=== PATIENT | male | born 1945 | race Caucasian/White ===

== ENCOUNTER 2017-11-26 10:25 | Emergency (ER) | payer MEDICARE, OTHER, SELFPAY ==
[2017-11-26 10:28] VITALS: BP 149/78; PULSE 68; RESP 18; TEMP 36.4; O2SAT 92; BMI 29.5
--- NOTE | 2017-11-26 10:34 | ED.FALL ---
HPI - Fall General Chief Complaint: Fall Stated Complaint: 'BROKEN RIB' Time Seen by Provider: 11/26/17 10:28 Source: patient and family Mode of arrival: ambulatory Limitations: no limitations History of Present Illness HPI Narrative: Patient presents to the emergency department with a chief complaint of right anterior chest pain since a mechanical fall on Sunday. He was walking down 2 steps and caught the toe of his shoe and fell onto his right side. He bumped his right elbow and shoulder but has full range of motion. He has sharp and stabbing pain with motion and deep breath or cough. He denies hemoptysis or shortness of breath. MD complaint: fall Onset (ago): day(s) Fall from: standing Fall witnessed: yes, by family Place fall occurred: home Loss of consciousness: none Prolonged down time: no Context: tripped/slipped Location of injury: chest Severity: moderate Severity scale (1-10): 5 Quality: sharp Associated symptoms (after fall): chest pain Related Data Home Medications Medication Instructions Recorded Confirmed [TUMERIC] 500 mg PO QDAY #0 08/13/17 lisinopril 40 mg PO QDAY #0 08/13/17 multivitamin [Multiple Vitamins] 1 tab PO QDAY #0 08/13/17 Previous Rx's Medication Instructions Recorded hydrocodone-acetaminophen [[place]] 1 tab PO Q4H PRN #60 tab 08/28/17 hydrocodone-acetaminophen 1 tab PO Q4-6H PRN #14 tab 11/26/17 Allergies Allergy/AdvReac Type Severity Reaction Status Date / Time citric acid [CITRIC ACID] Allergy Mild CANKER Verified 11/26/17 10:32 SORES Penicillins [PENICILLINS] Allergy Unknown CHILDHOOD Verified 11/26/17 10:32 Review of Systems Review of Systems All systems reviewed & are unremarkable except as noted in HPI and below Constitutional Denies chills, Denies fever(s), Denies lethargy and Denies weakness ENT Ears, Nose, Mouth, and Throat: Denies change in voice, Denies neck pain and Denies sore throat Cardiovascular Denies chest pain, Denies irregular heart rhythm, Denies lightheadedness, Denies palpitations and Denies orthopnea Respiratory Reports as per HPI, Reports pain on inspiration and Reports pain with cough Gastrointestinal Gastrointestinal: Denies abdominal pain, Denies change in bowel habits, Denies diarrhea, Denies nausea and Denies vomiting Musculoskeletal Denies neck pain Neurologic Denies weakness Endocrine Denies palpitations Exam Narrative Exam Narrative: Pleasant 72-year-old male is alert and oriented x3, GCS 15, in obvious pain clutching his right chest. Const General: cooperative and well developed Nutritional Appearance: well nourished Orientation: alert, awake, oriented x3 and not confused [facility] Head: normocephalic and atraumatic Ears: external ears normal and TM's normal bilaterally Nose: external nose normal and No nasal discharge Face and sinus: sinuses nontender, face symmetric, no sinus tenderness and No dry mucous membranes Mouth: oral mucosae normal and moist mucous membranes Teeth and gingiva: dentition normal Throat: tonsils normal and uvula midline Neck Neck: normal visual inspection, trachea midline, No lymphadenopathy, No midline deformity and No JVD Lymphatic: No lymphedema Chest Chest: abnormal inspection of the chest, crepitus and localized rib tenderness with anteroposterior compression Resp Effort & Inspection: normal respiratory effort, able to speak in complete sentences, no respiratory distress and no use of accessory muscles Auscultation: clear to auscultation bilaterally, no rales, no rhonchi and no wheezes GI Inspection: non-distended Palpation: soft, no hepatosplenomegaly, No guarding, No pulsatile mass and No tender Auscultation: normal bowel sounds Back/Spine/Pelvis Back: No CVA tenderness Cervical Spine: cervical ROM normal and No pain with cervical ROM Thoracic/Lumbar Spine: thoracic and lumbar spine normal to inspection Skin Other: very minor abrasion R elbow Neuro General: alert, oriented x3, gait normal and no focal motor deficits Speech: speech normal Sensory Exam: no sensory deficits noted [facility] Social History Smoking Status: Never smoker MDM - Fall Imaging Data Chest x-ray: My impression: multiple R sided rib fractures Radiologist's impression: PROCEDURE: XR RIBS RT MIN 3V W CXR 1V INDICATIONS: fall with rib pain TECHNIQUE: 2 views of the right ribs were acquired, along with a single view chest. COMPARISON: None. FINDINGS: Surgical changes and devices: None. Bones and chest wall: Right 9th, 10th and 11th rib fractures. Lungs and pleura: No pneumothorax. Trace right pleural effusion and atelectasis. Lungs appear clear. Mediastinum: Mediastinal contours appear normal. Heart size is normal. IMPRESSION: Right 9th , 10th, 11th rib fractures Trace right pleural effusion and adjacent atelectasis. Dictated by: Jose Barnhart M.D. on 11/26/2017 at 11:44 Approved by: Jose Barnhart M.D. on 11/26/2017 at 11:49 Course Orders Ordered: ED Orders 11/26/17 10:35 XR ribs RT min 3V w CXR1V Stat Discontinued Medications Hydrocodone Bitart/Acetaminophen ([place] 5/325) 2 tab PO NOW ONE Stop: 11/26/17 10:58 Last Admin: 11/26/17 11:07 Dose: 2 tab Last Vital Signs Temp 97.6 F 11/26/17 10:28 Pulse 68 11/26/17 10:28 Resp 18 11/26/17 10:28 BP 149/78 H 11/26/17 10:28 Pulse Ox 92 11/26/17 10:28 Discharge Plan Departure Patient Disposition: Home, Self-Care Clinical Impression: Fracture, ribs Discharge Date/Time: 11/26/17 11:25 Interventions: ED Discharge Assessment Last Done: 11/26/17 11:26 Instructions: DI for Rib Fracture Activity Restrictions/Additional Instructions: You have been prescribed narcotic medications. While on these medications you cannot drive or operate heavy machinery. Additionally you cannot sign legal documents or perform any duties such as this. Many people get constipated on narcotic medications so it would be advisable to discuss stool softeners with the pharmacist when you sweet pickle maker your prescription. Please understand that we cannot provide further refills of narcotics or controlled substances through the ED and your pain management will need to be through your Primary Care Provider Prescriptions: New hydrocodone-acetaminophen 5-325 mg tablet 1 tab PO Q4-6H PRN (Reason: pain) Qty: 14 RF: 0 No Action multivitamin [Multiple Vitamins] 1 EACH tablet 1 tab PO QDAY Qty: 0 RF: 0 lisinopril 40 MG tablet 40 mg PO QDAY Qty: 0 RF: 0 [TUMERIC] 500 mg PO QDAY Qty: 0 RF: 0 hydrocodone-acetaminophen [[place]] 5 MG/325 MG tablet 1 tab PO Q4H PRNQty: 60 RF: 0
[2017-11-26] MEDS: HYDROCODONE/ACET 5/325 TABLET 2 TAB PO (11:07)
--- NOTE | 2017-11-26 16:13 | ED_ITS ---
HPI - Fall General Chief Complaint: Fall Stated Complaint: 'BROKEN RIB' Time Seen by Provider: 11/26/17 10:28 Source: patient and family Mode of arrival: ambulatory Limitations: no limitations History of Present Illness HPI Narrative: Patient presents to the emergency department with a chief complaint of right anterior chest pain since a mechanical fall on Sunday. He was walking down 2 steps and caught the toe of his shoe and fell onto his right side. He bumped his right elbow and shoulder but has full range of motion. He has sharp and stabbing pain with motion and deep breath or cough. He denies hemoptysis or shortness of breath. MD complaint: fall Onset (ago): day(s) Fall from: standing Fall witnessed: yes, by family Place fall occurred: home Loss of consciousness: none Prolonged down time: no Context: tripped/slipped Location of injury: chest Severity: moderate Severity scale (1-10): 5 Quality: sharp Associated symptoms (after fall): chest pain Related Data Home Medications Medication Instructions Recorded Confirmed [TUMERIC] 500 mg PO QDAY #0 08/13/17 lisinopril 40 mg PO QDAY #0 08/13/17 multivitamin [Multiple Vitamins] 1 tab PO QDAY #0 08/13/17 Previous Rx's Medication Instructions Recorded hydrocodone-acetaminophen [[place]] 1 tab PO Q4H PRN #60 tab 08/28/17 hydrocodone-acetaminophen 1 tab PO Q4-6H PRN #14 tab 11/26/17 Allergies Allergy/AdvReac Type Severity Reaction Status Date / Time citric acid [CITRIC ACID] Allergy Mild CANKER Verified 11/26/17 10:32 SORES Penicillins [PENICILLINS] Allergy Unknown CHILDHOOD Verified 11/26/17 10:32 Review of Systems Review of Systems All systems reviewed & are unremarkable except as noted in HPI and below Constitutional Denies chills, Denies fever(s), Denies lethargy and Denies weakness ENT Ears, Nose, Mouth, and Throat: Denies change in voice, Denies neck pain and Denies sore throat Cardiovascular Denies chest pain, Denies irregular heart rhythm, Denies lightheadedness, Denies palpitations and Denies orthopnea Respiratory Reports as per HPI, Reports pain on inspiration and Reports pain with cough Gastrointestinal Gastrointestinal: Denies abdominal pain, Denies change in bowel habits, Denies diarrhea, Denies nausea and Denies vomiting Musculoskeletal Denies neck pain Neurologic Denies weakness Endocrine Denies palpitations Exam Narrative Exam Narrative: Pleasant 72-year-old male is alert and oriented x3, GCS 15, in obvious pain clutching his right chest. Const General: cooperative and well developed Nutritional Appearance: well nourished Orientation: alert, awake, oriented x3 and not confused [facility] Head: normocephalic and atraumatic Ears: external ears normal and TM's normal bilaterally Nose: external nose normal and No nasal discharge Face and sinus: sinuses nontender, face symmetric, no sinus tenderness and No dry mucous membranes Mouth: oral mucosae normal and moist mucous membranes Teeth and gingiva: dentition normal Throat: tonsils normal and uvula midline Neck Neck: normal visual inspection, trachea midline, No lymphadenopathy, No midline deformity and No JVD Lymphatic: No lymphedema Chest Chest: abnormal inspection of the chest, crepitus and localized rib tenderness with anteroposterior compression Resp Effort & Inspection: normal respiratory effort, able to speak in complete sentences, no respiratory distress and no use of accessory muscles Auscultation: clear to auscultation bilaterally, no rales, no rhonchi and no wheezes GI Inspection: non-distended Palpation: soft, no hepatosplenomegaly, No guarding, No pulsatile mass and No tender Auscultation: normal bowel sounds Back/Spine/Pelvis Back: No CVA tenderness Cervical Spine: cervical ROM normal and No pain with cervical ROM Thoracic/Lumbar Spine: thoracic and lumbar spine normal to inspection Skin Other: very minor abrasion R elbow Neuro General: alert, oriented x3, gait normal and no focal motor deficits Speech: speech normal Sensory Exam: no sensory deficits noted [facility] Social History Smoking Status: Never smoker MDM - Fall Imaging Data Chest x-ray: My impression: multiple R sided rib fractures Radiologist's impression: PROCEDURE: XR RIBS RT MIN 3V W CXR 1V INDICATIONS: fall with rib pain TECHNIQUE: 2 views of the right ribs were acquired, along with a single view chest. COMPARISON: None. FINDINGS: Surgical changes and devices: None. Bones and chest wall: Right 9th, 10th and 11th rib fractures. Lungs and pleura: No pneumothorax. Trace right pleural effusion and atelectasis. Lungs appear clear. Mediastinum: Mediastinal contours appear normal. Heart size is normal. IMPRESSION: Right 9th , 10th, 11th rib fractures Trace right pleural effusion and adjacent atelectasis. Dictated by: Jose Barnhart M.D. on 11/26/2017 at 11:44 Approved by: Jose Barnhart M.D. on 11/26/2017 at 11:49 Course Orders Ordered: ED Orders 11/26/17 10:35 XR ribs RT min 3V w CXR1V Stat Discontinued Medications Hydrocodone Bitart/Acetaminophen ([place] 5/325) 2 tab PO NOW ONE Stop: 11/26/17 10:58 Last Admin: 11/26/17 11:07 Dose: 2 tab Last Vital Signs Temp 97.6 F 11/26/17 10:28 Pulse 68 11/26/17 10:28 Resp 18 11/26/17 10:28 BP 149/78 H 11/26/17 10:28 Pulse Ox 92 11/26/17 10:28 Discharge Plan Departure Patient Disposition: Home, Self-Care Clinical Impression: Fracture, ribs Discharge Date/Time: 11/26/17 11:25 Interventions: ED Discharge Assessment Last Done: 11/26/17 11:26 Instructions: DI for Rib Fracture Activity Restrictions/Additional Instructions: You have been prescribed narcotic medications. While on these medications you cannot drive or operate heavy machinery. Additionally you cannot sign legal documents or perform any duties such as this. Many people get constipated on narcotic medications so it would be advisable to discuss stool softeners with the pharmacist when you diamond picker your prescription. Please understand that we cannot provide further refills of narcotics or controlled substances through the ED and your pain management will need to be through your Primary Care Provider Prescriptions: New hydrocodone-acetaminophen 5-325 mg tablet 1 tab PO Q4-6H PRN (Reason: pain) Qty: 14 RF: 0 No Action multivitamin [Multiple Vitamins] 1 EACH tablet 1 tab PO QDAY Qty: 0 RF: 0 lisinopril 40 MG tablet 40 mg PO QDAY Qty: 0 RF: 0 [TUMERIC] 500 mg PO QDAY Qty: 0 RF: 0 hydrocodone-acetaminophen [[place]] 5 MG/325 MG tablet 1 tab PO Q4H PRNQty: 60 RF: 0
== END 2017-11-26 11:25 | disposition home or self-care (01) ==
PROVIDERS: Emergency Provider Emergency Medicine
DX: S22.41XA Multiple fractures of ribs, right side, initial encounter for closed fracture (principal); W10.8XXA Fall (on) (from) other stairs and steps, initial encounter
CPT/HCPCS: 71101; 99282; 99283

== ENCOUNTER → 2018-02-08 11:06 | Outpatient (CLI) | payer MEDICARE, OTHER, SELFPAY ==
--- NOTE | 2018-02-08 | DI.CT.S_ITS ---
PROCEDURE: CT UE RT WO CON INDICATIONS: CHRONIC RIGHT SHOULDER PAIN TECHNIQUE: Noncontrast 1-1.5 mm thick sections acquired from the acromioclavicular joint to the inferior scapula, with coronal and sagittal reformatting. COMPARISON: [facility], CR, SHOULDER 1 VIEW LEFT, 08/27/2017, 10:23. [facility], CT, UPPER EXTREMITY WO CONTRAST, 07/06/2017, 10:14. FINDINGS: Image quality: Excellent. Bones: There are severe osteoarthritic changes in the right glenohumeral joint with severe joint space narrowing and freely associated extensive subchondral sclerosis and cystic changes. There is marked osteophytosis. There is slight superior migration of the humeral head with respect to the glenoid. There is minimal glenoid retroversion of approximately -3?. There is moderate to severe acromioclavicular joint degeneration. Visualized osseous structures appear intact. Soft tissues: Limited evaluation of the rotator cuff demonstrates no complete tear. There is mild attenuation of the supraspinatus superiorly which may reflect partial tearing. In the right posterior neck region, there is a subcutaneous cystic lesion measuring approximately 2 cm suggestive of a sebaceous cyst. IMPRESSION: 1. Severe osteoarthritic changes of the right glenohumeral joint. There is minimal glenoid retroversion of -3?. Dictated by: Shayne Gregorio M.D. on 02/08/2018 at 17:25 Approved by: Shayne Gregorio M.D. on 02/08/2018 at 17:31
== END ==
PROVIDERS: Visit Provider Orthopaedic Surgery
DX: M19.011 Primary osteoarthritis, right shoulder (principal); M25.511 Pain in right shoulder; G89.29 Other chronic pain
CPT/HCPCS: 73200

== ENCOUNTER → 2018-03-28 09:00 | Outpatient (CLI) | payer MEDICARE, OTHER, SELFPAY ==
[2018-03-28 09:19] LABS: Bacteria Urine None Seen; RBC Urine None Seen (0-5/HPF)
[2018-03-28 09:57] LABS: Add Manual Diff / Slide Review NO; Basophils Percent Auto 0.4 % (0-2); Eosinophils Percent Auto 4.1 % (2-4); Hematocrit 40.6 % (41-53); Mean Corpuscular HGB Conc 34.4 % (30-36); Mean Corpuscular Hemoglobin 31.8 PG (26-34); Mean Corpuscular Volume 92.4 fL (80-100); Neutrophils Absolute Auto 2300 /uL (3000-5900); Neutrophils Percent Auto 52.5 % (50-75); Platelet Count 212 X10^3/uL (150-400); White Blood Cell Count 4.5 X10^3/uL (4.5-11.0)
[2018-03-28 10:10] LABS: Hemoglobin A1C% w Est Avg Glu 5.6 % (4.0-6.0)
[2018-03-28 10:11] LABS: Transferrin 286 mg/dL (206-381)
[2018-03-28 10:12] LABS: Blood Urea Nitrogen 24 mg/dL (9-20); Calcium 9.7 mg/dL (8.4-10.2); Carbon Dioxide 29 mmol/L (22-32); Chloride 107 mmol/L (98-107); Estimated Glomerular Filt Rate > 60.0 mL/min (>60); Glucose 98 mg/dL (80-110); HEMOLYSIS < 15 (0-50); Potassium 4.5 mmol/L (3.4-5.1); Sodium 144 mmol/L (137-145)
[2018-03-28 10:42] LABS: Appearance Urine UA CLEAR; Bilirubin Urine UA NEGATIVE (NEGATIVE); Color Urine UA YELLOW; Glucose Urine UA NEGATIVE (Normal); Ketones Urine UA NEGATIVE (NEGATIVE); Leukocyte Esterase Urine UA NEGATIVE (NEGATIVE); Nitrite Urine UA Negative (Negative); Occult Blood Urine UA NEGATIVE (Negative); Protein Urine UA NEGATIVE (Negative); Urobilinogen Urine UA 0.2 E.U./dL (0.2); pH Urine UA 5.5 (4.5-8.0)
[2018-03-28 11:36] LABS: Culture Indicated Urine Specimen Cultured; WBC Urine 5-10/HPF (0-5/HPF)
== END ==
PROVIDERS: Visit Provider Orthopaedic Surgery
DX: M25.511 Pain in right shoulder (principal); Z01.812 Encounter for preprocedural laboratory examination; D64.9 Anemia, unspecified; R73.9 Hyperglycemia, unspecified; Z01.818 Encounter for other preprocedural examination; I10 Essential (primary) hypertension
CPT/HCPCS: 36415; 80048; 81001; 83036; 84466; 85025; 87086; 93005

== ENCOUNTER 2018-04-22 10:23 | Inpatient (IN) | payer MEDICARE, OTHER, SELFPAY ==
[2018-04-01 10:35] VITALS: BMI 29.8
[2018-04-22] VITALS (16 sets, daily range): BP systolic 95–149; BP diastolic 59–95; PULSE 60–90; RESP 13–19; TEMP 36.2–36.8; O2SAT 91–95; BMI 29.8
--- NOTE | 2018-04-22 10:01 | DI.RAD.S_ITS ---
PROCEDURE: XR SHOULDER RT 1V INDICATIONS: post op TECHNIQUE: 1 view of the shoulder were acquired. COMPARISON: [facility], , SHOULDER 1 VIEW LEFT, 08/27/2017, 10:23. FINDINGS: Bones: No fractures or dislocations. No suspicious bony lesions. Visualized ribs appear intact. Right total shoulder arthroplasty appears in normal position immediately postoperatively. Soft tissues: No suspicious soft tissue calcifications. IMPRESSION: Normal postoperative alignment with a surgical drain overlying the operative bed. Dictated by: Damien Ashford M.D. on 04/22/2018 at 15:57 Approved by: Damien Ashford M.D. on 04/22/2018 at 15:58
--- NOTE | 2018-04-22 10:48 | SUR.OPER ---
Beach chair with Watson/Lida shoulder positioner. Lower body on padded OR bed. Head in foam padded head cradle, secured with straps. Non-operative arm secured <90 degrees abduction. Pillow under knees. Safety belt at thigh. Cloth tape over blanket over lower legs.
[2018-04-22] MEDS: LACTATED RINGERS 1,000 ML 42 ML IV ×2 (11:08→13:37)
[2018-04-22] MEDS: PREGABALIN 75 MG CAPSULE PO (11:09)
[2018-04-22] MEDS: CELECOXIB 200 MG CAPSULE PO (11:09)
[2018-04-22] MEDS: ACETAMINOPHEN 325 MG TABLET 975 MG PO ×3 (11:09→20:53)
[2018-04-22] MEDS: fentaNYL 100 MCG/2 ML INJ 50 MCG IV ×2 (11:26→11:34)
[2018-04-22] MEDS: MIDAZOLAM 5 MG/ML VIAL 1 MG IV (11:27)
--- NOTE | 2018-04-22 11:40 | PM.PREOP ---
Pre-operative Note Interval Note Pre-op Check: Yes History & Physical Reviewed by Physician and Yes Exam Performed Changes: No
[2018-04-22] MEDS: CEFAZOLIN 2 GM/100 ML FROZ.PIGGY IV ×2 (12:00→20:59)
--- NOTE | 2018-04-22 12:04 | SUR.PREOP ---
Dr Hall with unsuccessful attempt to do Interscalene block primarily using nerve stimulator, and once checking further fo nerve and blood vessels x1 with ultrasound. Regional block abandoned after mutiple attempts. Pressure help to local injection area to minimize any potential hematoma, first by Dr. Hall followed by myself. No swelling seen on transfer to OR. VS and rhythm strip during procedure on paper in chart. Patient appearred to tolerate well as evidenced bylack of physical response and stable VS. Start of 1126 and end at 1156.
[2018-04-22] MEDS: TRANEXAMIC ACID 1,000 MG VIAL 1000 MG INJ (12:43)
[2018-04-22] MEDS: THROMBIN (BOVINE) 5,000 UNIT VIAL 5000 UNIT TOP (12:44)
[2018-04-22] MEDS: BUPIVACAINE 0.5% W/ EPI (PF) VIAL 30 ML INJ (12:45)
--- NOTE | 2018-04-22 14:14 | P.OP_ITS ---
Operative Date/Time/Diagnoses Date of procedure: 04/22/18 Time of procedure: 13:55 Pre-op diagnosis: Right shoulder osteoarthritis Post-op diagnosis: same Procedure & Clinicians Procedure: 1. Right total shoulder replacement 2. Suprascapular nerve block performed by surgeon for postoperative pain control Same procedure as scheduled: Yes Indications: The patient has had progressively worsening right shoulder pain with radiographic changes consistent with arthritis. Non-operative management has failed and the patient has requested total shoulder replacement. The risks, benefits and alternatives to surgery were discussed with the patient prior to proceeding. Risks discussed included, but were not limited to, failure to relieve pain, stiffness, infection, nerve damage, deep venous thrombosis, pulmonary embolism, stroke, coma, heart attack, permanent paralysis and , as well as the potential need for eventual revision of the prosthetic. Surgeon: Ron Youssef Candle Wicker: Leigh Umanzor Click Yes if Unassisted: No Anesthesia Type: General, Peripheral nerve block and Local Operative Notes Findings: Severe osteoarthritis with posterior superior erosion of the glenoid requiring custom glenoid guide. Closure Type: primary Specimen(s): none sent Implants & Drains: Implants used in this procedure were manufactured by the [employer] and included an Altivate short stem total shoulder system with a size 50 mm all-polyethylene E plus pegged glenoid, a 14 mm humeral stem, a 50 mm diameter 20 mm thick neutral humeral head and a neutral humeral neck. Applied: drain(s) and implant(s) Estimated Blood Loss (mL): 200 Blood products transfused: none Procedure in detail: The patient was seen in the pre-operative area, where the patient identified the right shoulder as the operative site and this was marked with my initials. The patient received pre-operative antibiotics, underwent an unsuccessful attempt at an interscalene block, and was taken to the operating room and placed on the operative table in the supine position. After satisfactory anesthesia, a full ?time out? was performed. The patient was repositioned in the ?beach chair? position using a dedicated positioner. All pressure points were well padded, and the knees were slightly bent to prevent tension on the sciatic nerves. The right arm was prepared from the fingers to the base of the neck with ChloroPrep in the usual fashion and draped through sterile drapes. An approximately 15 cm incision was created, starting at the clavicle above the coracoid process and extended towards the deltoid insertion. The deltopectoral interval was used to access the shoulder. The cephalic vein was taken medially. A self retaining retractor was placed. The upper centimeter of the pectoralis major tendon was released. The ?three sisters? were identified and cauterized. The axillary nerve was palpated and protected throughout the case. The biceps was released from its groove and tenodesed over the top of the pectoralis major tendon. The subscapularis was released from the lesser tuberosity with a subscapularis peel and tagged for later repair. The shoulder was dislocated and a cutting guide was used for the proximal humeral osteotomy in 30 degrees of retroversion. A starter reamer was used followed by the cylindrical reamers. This continued in larger sizes in till cortical bite was achieved. Sequential broaching was then performed until a line to line fit with the reamer occurred. A proximal humeral protector was then placed. We then removed the self-retaining retractor and placed retractors to access the glenoid. The subscapularis was released with a ?360 degree release? with care being taken to protect the axillary nerve with the inferior portion of this procedure. The remnant of labrum and biceps stump were removed. The custom- made glenoid aim ir was applied, and the guide pin placed. The glenoid was appropriately reamed. The guide for the peripheral holes was used and the center hole enlarged. The trial glenoid was placed with good stability. We then cemented the final implant into place after irrigating the peg holes and drying them with thrombin-soaked Gelfoam. We returned our attention to the humerus, a trial humeral head was applied and a trial reduction performed. Stability was checked with 50 % posterior translation with spontaneous reduction, external rotation at the side of 45? with the subscapularis held on the repaired position and internal rotation in abduction of 70?.. This was felt to be satisfactory and the appropriate implants were opened. Five holes were drilled along the humeral osteotomy and #2 TiCron sutures placed for eventual subscapularis repair. The humeral prosthetic was impacted into the humerus. The humeral head was applied when the stem was still slightly proud and impacted to both seat the head and fully seat the stem. The joint was relocated one final time. The joint was irrigated and the subscapularis repaired to the previously placed sutures using Vipul-Florian sutures. The top of the subscapularis was closed to the leading edge of the supraspinatus with a figure of 8 #2 TiCron to close the rotator interval. A deep drain was placed and brought out supero-laterally. The deltopectoral interval was closed with interrupted 0 Vicryl. The subcutaneous layer was closed with 3-0 Vicryl, and the skin with a running 3-0 V-Lock suture and SteriStrips. During closure 10 mL of 0.5% Marcaine with epinephrine was injected at the suprascapular nerve with the standard technique for postoperative pain control. An additional 20 mL of the same solution was injected into the deltoid, pectoralis major and subcutaneous tissues. An Aquacel Ag dressing was applied, the patient?s arm was placed in a sling, and the patient was taken to recovery having tolerated the procedure well. Complications: none Condition: stable Disposition: PACU Plan for aftercare: The patient will be maintained on a standard total shoulder replacement protocol with passive range of motion limited to 90 degrees forward flexion, 0 degrees external rotation at the side, 0 degrees abduction and internal rotation to the body. The patient will receive aspirin and sequential compression devices for DVT prophylaxis. The patient will be discharged home when safe for the home environment, likely tomorrow.
[2018-04-22] MEDS: HYDROMORPHONE 2 MG INJ 0.5 MG IV (14:39)
--- NOTE | 2018-04-22 14:52 | SUR.PHASEI ---
Pt reported Rt shoulder ache but declined pain med,
--- NOTE | 2018-04-22 15:18 | SUR.PHASEI ---
Pt more awake than earlier, still desats to upper 80s on RA while dozing.
--- NOTE | 2018-04-22 15:25 | SUR.PHASEI ---
Report called to JEANIE Parrish
--- NOTE | 2018-04-22 15:44 | SUR.PHASEI ---
Pt transferred to the floor, report given to Shivani. Rt shoulder DRSG cdi. HV patent, emptied 20mls. IV saline locked. VS stable, except o2 sat 90-93%ra, 1nc applied, sats mid 90s. Belongings bag with patient.
[2018-04-22] MEDS: LACTATED RINGERS 1,000 ML 125 ML IV (15:49)
--- NOTE | 2018-04-22 16:15 | PC.NURSE ---
Post-op/admit note: Patient admitted to room 225 s/p Total R shoulder replacement. Patient alert and oriented times 3, rates pain tolerable. Bulky dressing to R shoulder with hemovac, Sling and Ice pack in place. 2+ pulse R arm, +CMS. Patient and patient's spouse oriented to room, bed, call light and fall policy. Patient verbalized understanding. Report to JEANIE Mobley.
--- NOTE | 2018-04-22 17:14 | PT.IPTN ---
Current Diagnoses Primary osteoarthritis, right shoulder (04/22/18) Surgery Performed Operation Date: 04/22/18 12:30 Actual Procedures p Total Shoulder Arthroplasty(Right) - Ron Youssef MD Physical Therapy Treatment Note M3 PT-IP Subjective Start: 04/22/18 17:10 Freq: NEEDED Status: Active Protocol: Document 04/22/18 17:11 EA (Rec: 04/22/18 17:13 EA [id number]) Subjective Physical Therapy Visit Type Type Administrative Note Notes Patient is not awake and not ready at 1700; nurse informed to complete PT eval tomorrow.
[2018-04-22] MEDS: OXYCODONE IR 5 MG TABLET PO (20:47)
[2018-04-22] MEDS: LISINOPRIL 20 MG TABLET 40 MG PO (20:49)
[2018-04-22] MEDS: ASPIRIN EC 81 MG TABLET PO (20:53)
[2018-04-22] MEDS: DOCUSATE 100 MG CAPSULE PO (20:53)
[2018-04-22] MEDS: PRAVASTATIN 20 MG TABLET 40 MG PO (20:54)
[2018-04-22] MEDS: INFLUENZA VACCINE 0.5 ML SYRINGE IM (20:59)
--- NOTE | 2018-04-22 22:36 | PC.NURSE ---
Assumed care of pt from PACU. pt very sleepy, wide at bedside. pt slept for about three hours after arrival to unit. Pt reports tolerable level of pain. Pt drank some water and had a cracker. tolerated. did eat half of dinner. and pt then fell back asleep. given flu shot per request, given pain meds. at bedside, states she will be staying. Pt uses call light. used urinal. compliant with nursing staff. not yet out of bed, bed adjusted for comfort. right arm propped on pillows. will continue to monitor.
[2018-04-23 00:17] VITALS: BP 111/69; PULSE 80; RESP 18; TEMP 36.6; O2SAT 94
[2018-04-23] MEDS: LACTATED RINGERS 1,000 ML 125 ML IV (00:17)
[2018-04-23] MEDS: OXYCODONE IR 5 MG TABLET PO ×4 (00:17→10:12)
[2018-04-23] MEDS: CEFAZOLIN 2 GM/100 ML FROZ.PIGGY IV (03:36)
[2018-04-23] MEDS: IBUPROFEN 200 MG TABLET PO (03:37)
[2018-04-23 03:45] VITALS: BP 106/61; PULSE 76; RESP 18; TEMP 36.8; O2SAT 94
[2018-04-23 05:41] LABS: Hematocrit 31.8 % (41-53); Hemoglobin 10.9 g/dL (13.5-17.5); Mean Corpuscular HGB Conc 34.4 % (30-36); Mean Corpuscular Hemoglobin 32.4 PG (26-34); Mean Corpuscular Volume 94.1 fL (80-100); Platelet Count 154 X10^3/uL (150-400); Red Blood Cell Count 3.37 X10^6/uL (4.5-5.9); Red Cell Distribution Width 13.9 % (11.6-14.8); White Blood Cell Count 7.6 X10^3/uL (4.5-11.0)
[2018-04-23 06:37] VITALS: O2SAT 94
[2018-04-23 07:30] VITALS: BP 104/72; PULSE 68; RESP 16; TEMP 36.6; O2SAT 94
[2018-04-23] MEDS: ASPIRIN EC 81 MG TABLET PO (08:27)
[2018-04-23] MEDS: DOCUSATE 100 MG CAPSULE PO (08:27)
[2018-04-23] MEDS: POLYETHYLENE GLYCOL 3350 17 GM POWD.PACK PO (08:27)
[2018-04-23] MEDS: ACETAMINOPHEN 325 MG TABLET 975 MG PO (08:28)
--- NOTE | 2018-04-23 08:48 | PT.IIE ---
Current Diagnoses Primary osteoarthritis, right shoulder (04/22/18) Surgery Performed Operation Date: 04/22/18 12:30 Actual Procedures p Total Shoulder Arthroplasty(Right) - Ron Youssef MD Surgical History (Last Updated 04/01/18 @ 10:59 by Kimberly Chavira, RN) History of colonoscopy (Acute) History of tonsillectomy (Acute) Status post reverse total arthroplasty of left shoulder (Acute 09/05/17) Medical History (Last Updated 04/01/18 @ 10:55 by Kimberly Chavira, RN) Arthritis (Acute) BPH (benign prostatic hyperplasia) (Acute) CVA (cerebral vascular accident) (Acute) Dilated pancreatic duct (Acute) Erectile dysfunction (Acute) History of colitis (Acute) Hyperlipidemia (Acute) Impaired vision (Acute) Multiple fractures of ribs of right side (Acute) TIA (transient ischemic attack) (Acute) Physical Therapy Inpatient Evaluation/Re-Eval Medical Review Prior Functional Status Medical History Reviewed Yes Diet/Fluid Consistency Regular Communication no known deficits Mobility and Gait completely independent Activities of Daily Living and IADL's independent Social History Household Members spouse Home Environment Standard Height Toilet Walk in Shower Employment Status Retired Additional Social History Comment lives on a house boat in [place] Physical Therapy Current Condition Current Condition Evaluation Date 04/23/18 Treatment Diagnosis R TSA Onset Date 04/22/18 Precautions Shoulder Precautions Sling PROM Internal Rotation to Body No External Rotation No Abduction Forward Flexion to 90 degrees Pendulums Weight Bearing Status Weight Bearing Status Non-Weight Bearing Subjective Physical Therapy Visit Type Type Initial Evaluation Visit Start Time 07:55 Visit Stop Time 08:30 Total Visit Minutes 35 Physical Therapy Visit Comments Patient Comments Pt reports doing well, has no complaints this morning, is looking forward to going home later today. Patient Goals go home today Therapy Pain Assessment Pain When Pain Assessed At Rest Pain Present Pain Present Denied Pain PT-Transfer Assessment Sit to and From Stand Sit to and from Stand Independent Equipment Transfer Assistive Device None Transfers Transfer Destination Chair Transfer Technique walked Transfer Ability Level of Assist Independent Gait Assessment Gait Gait Assistance Required: Independent Distance (Feet) 200 Assistive Devices Assistive Device None Gait Deviations General Gait Pattern Within Normal Limits Stair Climbing Assessment Evaluation Level of Assist On Stairs Independent Devices Stair Climbing Assistive Devices Left Railing Technique/Endurance Stair Climbing Direction Ascend and Descend Stair Climbing Technique Step Over Step PT-Balance Assessment Sitting Balance and Reactions Static Sitting Balance Ability Normal Dynamic Sitting Balance Ability Normal Standing Balance and Reactions Static Standing Balance Ability Normal Dynamic Standing Balance Ability Normal Device Used none Orientation Orientation/Cognition Level of Alertness Alert Orientation Name Age Birthday Month Date Year Day of Week Place Situation Language Function Ability No Deficits Noted Safety Awareness Understands Safety Issues Memory Description No Deficits Noted Gross Range of Motion Upper Extremity ROM Assessment Left Impaired Lower Extremity ROM Assessment Within Functional Limits Strength Upper Extremity Strength Assessment Left Impaired Lower Extremity Strength Assessment Within Functional Limits Physical Therapy Treatment Education Education Provided Precautions Weight Bearing Status Safety PT Summary Assessment and Plan Potential Rehabilitation Potential Excellent Status of Condition at Evaluation Stable Summary Progress Towards Goals Safe For Discharge Assessment Summary Pt is POD#1 R TSA and is doing very well with mobility. Pt is completely independent but will have assist from his if needed. Pt is safe to discharge home with once medically ready and once he has worked with occupational therapy. Pt will also need to f/u with OPPT once cleared to do so. Goals Bed Mobility Goal Independent Transfer Goal Independent Gait Goal Independent Frequency of Treatment Frequency Of Treatment Discharge Recommendations To Nursing Amount of Assist Needed Independent Discharge Recommendations PT Discharge Recommendations Home with Assistance Outpatient PT
--- NOTE | 2018-04-23 08:57 | PC.NURSE ---
Pt alert, oriented, rates pain 3/10 ache denies need for pain med at this time but did take scheduled tylenol. CMS+ RUE, ambulated in [place] with therapy.
--- NOTE | 2018-04-23 09:03 | CM.DANOTE ---
DCP: Case received, EMR reviewed and met with patient. Introduced self and role. DCP template completed with information currently available. Patient is a 73 year old male who admitted yesterday morning to the care of the hospitalist team. PCP: Dr. Meng. Payer: confirmed: Medicare/[employer]. Patient came to hospital for right total shoulder replacement. Patient alert and oriented, family in his room. Stated that he is independent at home, lives with spouse. P: DCP to continue to assess. Patient will be working with physical therapy. Goal if for him to return home, with outpatient physical therapy if needed. Idalia Caceres RN/Php Mysql Developer
--- NOTE | 2018-04-23 09:32 | PM.DS.1 ---
History of Present Illness Date Patient Seen: 04/23/18 Time Patient Seen: 09:33 Chief complaint: [place] [id number] Narrative: Patient has right shoulder osteoarthritis. Brought to hospital on 04/22/2018 for right total shoulder arthroplasty by Dr. Youssef. Discharge Providers Date of admission: 04/22/18 10:23 Primary care physician: PEDRO MCGREGOR Consults: 04/22/18 15:40 Consult to Discharge Planning Routine Comment: Consult to Physical Therapy Evaluate & Treat Comment: pendulums, PROM 90 FF, 0 ER, 0 Abd, IR to body Physician Instructions: Evaluate and Treat 04/23/18 08:45 Consult to Occupational Therapy Evaluate & Treat Comment: Physician Instructions: Evaluate and treat 04/23/18 09:26 Consult to Occupational Therapy Evaluate & Treat Comment: Physician Instructions: Evaluate and treat Discharge provider: Po Isaacs PA-C Discharge Date: 04/23/18 Summary Discharge Diagnosis: Status post right total shoulder arthroplasty by Dr. Youssef. Hospital Course: Patient remained stable postoperatively. Pain controlled with oxycodone. Patient felt he was ready for discharge to home on postop day 1. Status at Discharge Overall status at discharge: patient is progressing back to baseline Time Spent with Patient Less than 30 minutes Exam Vital Signs (past 8 hours): - 04/23/18 03:45 04/23/18 06:37 04/23/18 07:30 Temperature 98.3 F 97.9 F Pulse Rate 76 68 Respiratory Rate 18 16 Blood Pressure 106/61 104/72 Pulse Oximetry 94 94 94 Oxygen Delivery Method Nasal Cannula Oxygen Flow Rate 0 Narrative Exam Narrative: Alert, oriented no acute distress sitting in chair. The right arm. Arm is in sling. Good pulses in assistant construction superintendent to right hand. Bulky dressing to right shoulder is dry without active drainage. Hemovac in place with minimal discharge. Patient also examined by Dr. Youssef. Objective Labs Result Diagrams: 04/23/18 05:19 Labs: Laboratory Results - last 24 hr 04/23/18 05:19 WBC 7.6 RBC 3.37 L Hgb 10.9 L Hct 31.8 L MCV 94.1 MCH 32.4 MCHC 34.4 RDW 13.9 Plt Count 154 Discharge Plan Discharge Plan Patient Disposition: Home Discharge comment: Discharged home. Limited use of right arm for lifting and carrying. Use sling for comfort and arm protection. Discharge Med Rec/Prescriptions Prescriptions: New hydrocodone-acetaminophen [[place]] 5-325 mg tablet 2 tab PO Q4-6H PRN (Reason: pain) Qty: 40 RF: 0 Continue multivitamin [Multiple Vitamins] 1 EACH tablet 1 tab PO QDAY Qty: 0 RF: 0 lisinopril 40 MG tablet 40 mg PO BEDTIME Qty: 0 RF: 0 [TUMERIC] 500 mg PO QDAY Qty: 0 RF: 0 aspirin 325 mg Tablet 81 mg PO BEDTIME RF: 0 pravastatin 40 mg Tablet 40 mg PO BEDTIME RF: 0 Discontinued ibuprofen 200 mg Capsule 200 - 400 mg PO Q4-6H PRN (Reason: Pain) RF: 0 Provider Discharge Instructions Diet: Diet as Tolerated Activity: Limit right arm lifting caring. Use sling right arm for comfort and stabilization. Cold/Heat Therapy: Ice pack to shoulder as needed. Skin/Wound/Dressing Care Report to your healthcare provider any signs of infection, such as:: chills, fever, night sweats, increased pain and unusual drainage Dressing: Keep Aquacel dressing in place until postop visit. Visit Report/Discharge Packet Instructions: DI for Shoulder Replacement Discharge Data Attending Provider: Ron Youssef Admit Date/Time: 04/22/18 10:23
--- NOTE | 2018-04-23 09:36 | P.DS_ITS ---
History of Present Illness Date Patient Seen: 04/23/18 Time Patient Seen: 09:33 Chief complaint: [place] [id number] Narrative: Patient has right shoulder osteoarthritis. Brought to hospital on for right total shoulder arthroplasty by Dr. Youssef. Discharge Providers Date of admission: 04/22/18 10:23 Primary care physician: PEDRO MCGREGOR Consults: 04/22/18 15:40 Consult to Discharge Planning Routine Comment: Consult to Physical Therapy Evaluate & Treat Comment: pendulums, PROM 90 FF, 0 ER, 0 Abd, IR to body Physician Instructions: Evaluate and Treat 04/23/18 08:45 Consult to Occupational Therapy Evaluate & Treat Comment: Physician Instructions: Evaluate and treat 04/23/18 09:26 Consult to Occupational Therapy Evaluate & Treat Comment: Physician Instructions: Evaluate and treat Discharge provider: Po Isaacs PA-C Discharge Date: 04/23/18 Summary Discharge Diagnosis: Status post right total shoulder arthroplasty by Dr. Youssef. Hospital Course: Patient remained stable postoperatively. Pain controlled with oxycodone. Patient felt he was ready for discharge to home on postop day 1. Status at Discharge Overall status at discharge: patient is progressing back to baseline Time Spent with Patient Less than 30 minutes Exam Vital Signs (past 8 hours): - 04/23/18 03:45 04/23/18 06:37 04/23/18 07:30 Temperature 98.3 F 97.9 F Pulse Rate 76 68 Respiratory Rate 18 16 Blood Pressure 106/61 104/72 Pulse Oximetry 94 94 94 Oxygen Delivery Method Nasal Cannula Oxygen Flow Rate 0 Narrative Exam Narrative: Alert, oriented no acute distress sitting in chair. The right arm. Arm is in sling. Good pulses in revenue inspector to right hand. Bulky dressing to right shoulder is dry without active drainage. Hemovac in place with minimal discharge. Patient also examined by Dr. Youssef. Objective Labs Result Diagrams: 04/23/18 05:19 Labs: Laboratory Results - last 24 hr 04/23/18 05:19 WBC 7.6 RBC 3.37 L Hgb 10.9 L Hct 31.8 L MCV 94.1 MCH 32.4 MCHC 34.4 RDW 13.9 Plt Count 154 Discharge Plan Discharge Plan Patient Disposition: Home Discharge comment: Discharged home. Limited use of right arm for lifting and carrying. Use sling for comfort and arm protection. Discharge Med Rec/Prescriptions Prescriptions: New hydrocodone-acetaminophen [[place]] 5-325 mg tablet 2 tab PO Q4-6H PRN (Reason: pain) Qty: 40 RF: 0 Continue multivitamin [Multiple Vitamins] 1 EACH tablet 1 tab PO QDAY Qty: 0 RF: 0 lisinopril 40 MG tablet 40 mg PO BEDTIME Qty: 0 RF: 0 [TUMERIC] 500 mg PO QDAY Qty: 0 RF: 0 aspirin 325 mg Tablet 81 mg PO BEDTIME RF: 0 pravastatin 40 mg Tablet 40 mg PO BEDTIME RF: 0 Discontinued ibuprofen 200 mg Capsule 200 - 400 mg PO Q4-6H PRN (Reason: Pain) RF: 0 Provider Discharge Instructions Diet: Diet as Tolerated Activity: Limit right arm lifting caring. Use sling right arm for comfort and stabilization. Cold/Heat Therapy: Ice pack to shoulder as needed. Skin/Wound/Dressing Care Report to your healthcare provider any signs of infection, such as:: chills, fever, night sweats, increased pain and unusual drainage Dressing: Keep Aquacel dressing in place until postop visit. Visit Report/Discharge Packet Instructions: DI for Shoulder Replacement Discharge Data Attending Provider: Ron Youssef Admit Date/Time: 04/22/18 10:23
--- NOTE | 2018-04-23 10:01 | OT.IP.EVAL ---
Current Diagnoses Primary osteoarthritis, right shoulder (04/22/18) Primary osteoarthritis, left shoulder (04/22/18) Surgery Performed Operation Date: 04/22/18 12:30 Actual Procedures p Total Shoulder Arthroplasty(Right) - Ron Youssef MD Past Medical History (Last Updated 04/01/18 @ 10:55 by Kimberly Chavira, RN) Arthritis (Acute) BPH (benign prostatic hyperplasia) (Acute) CVA (cerebral vascular accident) (Acute) Dilated pancreatic duct (Acute) Erectile dysfunction (Acute) History of colitis (Acute) Hyperlipidemia (Acute) Impaired vision (Acute) Multiple fractures of ribs of right side (Acute) TIA (transient ischemic attack) (Acute) Surgical History (Last Updated 04/01/18 @ 10:59 by Kimberly Chavira, RN) History of colonoscopy (Acute) History of tonsillectomy (Acute) Status post reverse total arthroplasty of left shoulder (Acute 09/05/17) Occupational Therapy Inpatient Evaluation/Re-Eval M1 PT/OT-IP Prior Functional Status Start: 04/24/18 17:14 Freq: NEEDED Status: Active Protocol: Document 04/23/18 10:01 SHAMA (Rec: 04/24/18 17:26 [facility] [id number]) Medical Review Prior Functional Status Medical History Reviewed Yes Diet/Fluid Consistency Regular Communication no known deficits Mobility and Gait completely independent Activities of Daily Living and IADL's independent Social History Household Members spouse Living Arrangements House Number of Floors (Floors) One Floor Number of Stairs To Enter/Railing? pt lives on houseboat with 3 stairs to access with railing Home Environment High Toilet Walk in Shower Employment Status Retired Additional Social History Comment supprotive can provide 24 hr assist at home M2 OT-IP Current Condition Start: 04/24/18 17:14 Freq: Status: Active Protocol: Document 04/23/18 10:01 KATI (Rec: 04/24/18 17:26 [facility] [id number]) Occupational Therapy Current Condition Current Condition Evaluation Date 04/23/18 Treatment Diagnosis decreased self care after R TSA Diagnosis Onset Date 04/22/18 Post Operative Precautions Shoulder Precautions Sling PROM Internal Rotation to Body No External Rotation No Abduction Forward Flexion to 90 degrees Pendulums Weight Bearing Status Weight Bearing Status Non-Weight Bearing Allowed Weight Bearing Amount (enter % RUE or #) (%) M3 OT- IP Subjective and Pain Start: 04/24/18 17:14 Freq: Status: Active Protocol: Document 04/23/18 10:01 PJM (Rec: 04/24/18 17:26 [facility] [id number]) OT- Subjective Occupational Therapy Visit Type Type Initial Evaluation Visit Start Time 09:20 Visit Stop Time 10:01 Total Visit Minutes 41 Notes Pt's here for education this session. Occupational Therapy Visit Comments Patient/Caregiver Goals to have less pain, be able to bicycle and to go on [employer] with his OT Pain Assessment Pain When Pain Assessed After Treatment Pain Present Pain Present Pain Reported Location Rt Shoulder Intensity 2 Scale Used Numeric (1 - 10) Description Aching Acute Pain Behaviors Guarding M4 OT- IP ADL's Start: 04/24/18 17:14 Freq: Status: Active Protocol: Document 04/23/18 10:01 PJM (Rec: 04/24/18 17:26 [facility] [id number]) OT RYX-[id number]-[id number] General Evaluation Self-Feeding Ability Independent Areas Needing Assistance Cutting Food Opening Containers Comments OT Self-Feeding Comments after meal tray set up OT ADL-Grooming General Evaluation Grooming Ability Independent Comments OT Grooming Comments standing at sink OT ADL-Oral Care General Eval Oral Care Ability Independent Comments Oral Care Comments standing at sink OT ADL-Dressing General Eval Upper Body Dressing Ability Moderate Assistance Lower Body Dressing Ability Minimal Assistance Areas Needing Assistance Retrieving/Set-up of Clothing Managing Zippers/Fasteners Button-Up Shirt/Blouse Underpants/Brief Pants/Shorts Socks Shoes Assistive Devices Dressing Assistive Devices Long Handled Shoe Horn Comments OT Dressing Comments Provided education to re: sling donning/doffing and dressing sequence. She will assist pt with socks and fastening pt's pants. Pt able to don slip on hsoes with SBA with long shoe horn which he has at home. OT ADL-Toileting General Evaluation Toileting Ability Independent OT ADL-Bathing Bathing Type Bathing Type Shower Comments OT Bathing Comments Pt declined to shower here. will assist PRN at home. M5 OT- IP IADL's Start: 04/24/18 17:14 Freq: Status: Active Protocol: Document 04/23/18 10:01 PJM (Rec: 04/24/18 17:26 [facility] [id number]) OT-Instrumental Activities of Daily Living Deficits IADL Deficits Identified Deficits Home Safety Awareness Awareness of Need for Assistance at Home Good Awareness Ability to Problem Solve Emergency Able to Problem Solve Situations Medication Management Medication Management No Deficits Identified Money Management Money Management No Deficits Identified Meal Preparation Meal Preparation Caregiver Provides Assist Meal Preparation Comments will assist PRN Final Armature Tester Final Armature Tester Caregiver Provides Assist Final Armature Tester Comments will assist PRN Driving Driving Caregiver Provides Assist Driving Comments to assist until pt able M6 OT- IP Functional Cognition Start: 04/24/18 17:14 Freq: Status: Active Protocol: Document 04/23/18 10:01 PJ (Rec: 04/24/18 17:26 [facility] [id number]) Cognitive Factors Limiting Selfcare Function Cognitive Ability Level of Alertness Alert Patient Orientation Name Age Birthday Month Date Year Day of Week Place Situation Attention Span Ability Capable of Focused Attention Capable of Sustained Attention Ability to Follow Commands Able to Follow Multi-Step Commands Memory Description No Deficits Noted Safety Awareness No Deficits Noted Problem Solving Ability No deficits Noted Executive Function Ability No Deficits Noted Abstract Thinking Ability No Deficits Noted Cognitive Comments Cognitive Assessment Comments cognition appears WFL OT- Vision and Hearing OT- Hearing Assessment OT- Hearing Assessment WFL OT- Vision Assessment Visual Acuity WFL Glasses All The Time Vision Assessment Comments pt denies recent changes M7 OT- IP Mobility and Balance Start: 04/24/18 17:14 Freq: Status: Active Protocol: Document 04/23/18 10:01 PJ (Rec: 04/24/18 17:26 [facility] [id number]) OT- Bed Mobility Assessment Rolling Type of Rolling Roll to Left Level of Assistance Independent Supine to Sit Supine to Sit Assist Independent Scooting Scooting to Edge of Bed Independent OT-Transfer Assessment Sit to and From Stand Sit to and from Stand Independent Technique Transfer Destination Chair Devices Transfer Assistive Devices None Comments Mobility Comments pt up in room [place] OT- Gait Assessment Gait Gait Assistance Required: Independent Distance (Feet) 10 Assistive Devices Assistive Device None OT- Balance Assessment Sitting Balance and Reactions Static Sitting Balance Ability Good Dynamic Sitting Balance Ability Good Standing Balance and Reactions Static Standing Balance Ability Good Dynamic Standing Balance Ability Good M8 OT- IP Objective Assessments Start: 04/24/18 17:14 Freq: Status: Active Protocol: Document 04/23/18 10:01 PJ (Rec: 04/24/18 17:[address] [id number] OT Gross Range of Motion Upper Extremity Range of Motion Assessment Right Impaired ROM Impairments RUE: shldr NT due to precautions, demonstrates pendulums correctly with passive forward flexion to ~45 , distal AROM WFL. LUE WFL throughout OT Strength Upper Extremity Strength Assessment Right Impaired Hand Wicker Worker Strength Hand Dominance Right Comments Strength Comments R shldr NT; distal strength at least 3/5, self storage manager 3+/5 LUE WFL OT- Coordination Assessment Upper Extremity Finger to Nose Test Right UE Impaired Finger Tapping Test Right UE Impaired Comments Coordination Comments Functional use RUE limited by sling; pt using R hand as assist within sling OT-Muscle Tone Assessment Muscle Tone WNL Yes OT Sensation Assessment Comments Summary Comments WNL BUE Edema Edema Absent M9 OT- IP Assessment and Plan Start: 04/24/18 17:14 Freq: Status: Active Protocol: Document 04/23/18 10:01 [facility] (Rec: 04/24/18 17:26 [facility] [id number]) OT Summary Assessment and Plan Potential Rehabilitation Potential Excellent Analytic Complexity at Evaluation Low Summary OT Impairments Pain Range of Motion Strength Dressing Bathing Shower Transfers Progress Towards Goals Safe For Discharge Goals Met Assessment Summary Low complexity OT assessment and all OT education completed this session re: R shoulder ROM precautions, pendulums, distal RUE AROM ex, adapted ADLs. Pt/ familiar with information from previous L TSA within the last year, but requesting review of all education today. Pt safe to d/ c home with 24 hr assist from OT standpoint. No further OT services needed. Frequency of Treatment Frequency Of Treatment Discharge Discharge Recommendations OT Discharge Recommendations Home with 24/7 Assist Home Equipment Needs none
== END 2018-04-23 10:40 | disposition home or self-care (01) | DRG 483 ==
PROVIDERS: Admitting Provider Orthopaedic Surgery; Visit Provider Orthopaedic Surgery
PROC: 0RQJ0ZZ Repair Right Shoulder Joint, Open Approach (ICD-10-PCS; CPT 23472; principal; 2018-04-22 12:30)
DX: M19.011 Primary osteoarthritis, right shoulder (principal); Z86.73 Personal history of transient ischemic attack (TIA), and cerebral infarction without residual deficits; I10 Essential (primary) hypertension
CPT/HCPCS: 36415; 64450; 73020; 85027; 90471; 90656; 97116; 97161; 97165; 97535; C1776; J0330; J0690; J1170; J2250; J2405; J2704; J3010; Q2038

== ENCOUNTER 2018-04-28 10:36 | Emergency (ER) | payer MEDICARE, OTHER, SELFPAY ==
[2018-04-22 16:04] VITALS: BMI 29.8
--- NOTE | 2018-04-28 10:53 | DI.RAD.S_ITS ---
PROCEDURE: XR ACUTE ABDOMEN SERIES INDICATIONS: constipation s/p surgery TECHNIQUE: One view chest and two views of the abdomen were acquired. COMPARISON: None. FINDINGS: Surgical changes and devices: Bilateral shoulder arthroplasty. Chest: Lungs are clear. Heart size is normal. No pleural effusions. No pneumoperitoneum. Abdomen: Moderate diffuse colonic stool. Bowel gas pattern is otherwise normal. No suspicious calcifications. Visualized solid organ contours appear normal. Bones: No suspicious bony lesions. IMPRESSION: No acute process. Moderate diffuse colonic stool. Dictated by: Theresa Beavers M.D. on 04/28/2018 at 11:28 Approved by: Theresa Beavers M.D. on 04/28/2018 at 11:29
[2018-04-28 10:55] VITALS: BP 112/75; PULSE 97; RESP 18; TEMP 36.6; O2SAT 98
[2018-04-28] MEDS: MINERAL OIL 1 EACH ENEMA PR (12:36)
--- NOTE | 2018-04-28 13:01 | PC.NURSE ---
Pt is unhappy that the enema didnt work. States aarti never heard of such an enema. (fleets)
[2018-04-28 13:56] VITALS: BP 126/76; PULSE 79; RESP 16; O2SAT 93
--- NOTE | 2018-04-28 16:42 | ED.ABDPAIN ---
HPI - Abdominal Pain General Chief Complaint: Abdominal Pain Stated Complaint: YVETTE ARROYO ITS BEEN 5 DAYS Time Seen by Provider: 04/28/18 11:04 Source: patient and family Mode of arrival: ambulatory Limitations: no limitations History of Present Illness HPI narrative: 73-year-old male, nonsmoker, presents with his for evaluation of decreased bowel movements for about the past week. He has no stranger to constipation but it does not usually last this long. He recently had a total right shoulder and has not had a bowel movement since the surgery. He has generalized crampy abdominal pain and denies any fever, chills nor nausea or vomiting. His pain is worse when he moves and improves with rest. He states that he has a history of hemorrhoids and was able to push 1 back in earlier today. He denies any rectal bleeding or other problems. He has been sporadically taking the pain medications given on discharge. He tried 2 doses of MiraLax over the course of the week and a few doses of Metamucil. MD complaint: abdominal pain Onset (ago): day(s) Pain Consistency: constant Location: diffuse Severity: mild Quality: cramping Radiation: none Migration to: no migration Relieving factors: nothing Exacerbating factors: movement Context: recent surgery/procedure Related Data Home Medications Medication Instructions Recorded Confirmed [TUMERIC] 500 mg PO QDAY #0 08/13/17 04/22/18 lisinopril 40 mg PO BEDTIME #0 08/13/17 04/22/18 multivitamin [Multiple Vitamins] 1 tab PO QDAY #0 08/13/17 04/22/18 aspirin 81 mg PO BEDTIME 04/01/18 04/22/18 pravastatin 40 mg PO BEDTIME 04/01/18 04/22/18 Previous Rx's Medication Instructions Recorded hydrocodone-acetaminophen [[place]] 2 tab PO Q4-6H PRN #40 tab 04/23/18 Allergies Allergy/AdvReac Type Severity Reaction Status Date / Time citric acid [CITRIC ACID] Allergy Mild CANKER Verified 04/01/18 11:03 SORES Penicillins [PENICILLINS] Allergy Unknown CHILDHOOD Verified 04/01/18 11:03 Review of Systems Review of Systems All systems reviewed & are unremarkable except as noted in HPI and below Constitutional Denies chills, Denies fever(s), Denies lethargy and Denies weakness Eyes Denies change in vision, Denies eye discharge, Denies irritation and Denies loss of vision ENT Ears, Nose, Mouth, and Throat: Denies change in voice, Denies neck pain and Denies sore throat Cardiovascular Denies chest pain, Denies irregular heart rhythm, Denies lightheadedness, Denies palpitations, Denies dyspnea, Denies dyspnea on exertion and Denies orthopnea Respiratory Denies cough, Denies dyspnea, Denies dyspnea on exertion and Denies wheezing Gastrointestinal Gastrointestinal: Reports system reviewed and no additional complaints, except as docu, Reports abdominal pain, Denies change in bowel habits, Reports cramping, Denies diarrhea, Denies nausea and Denies vomiting Genitourinary Denies hematuria, Denies flank pain, Denies urinary incontinence and Denies urinary urgency Musculoskeletal Denies neck pain Integumentary/Breasts Denies pruritus, Denies erythema, Denies rash and Denies wounds Neurologic Denies confusion, Denies loss of vision and Denies weakness Psychiatric Denies anxiety, Denies confusion, Denies depression, Denies homicidal ideation and Denies suicidal ideation Endocrine Denies palpitations Hematologic/Lymphatic Denies easy bruising Allergic/Immunologic Denies wheezing [facility] Medical History Arthritis (Acute) BPH (benign prostatic hyperplasia) (Acute) CVA (cerebral vascular accident) (Acute) Dilated pancreatic duct (Acute) Erectile dysfunction (Acute) History of colitis (Acute) Hyperlipidemia (Acute) Impaired vision (Acute) Multiple fractures of ribs of right side (Acute) TIA (transient ischemic attack) (Acute) Surgical History History of colonoscopy (Acute) History of tonsillectomy (Acute) 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 HEAD: Atraumatic. Normocephalic. No temporal or scalp tenderness. EYES: Pupils equal round and reactive. Extraocular motions intact. No scleral icterus. No injection or drainage. ENT: Nose without bleeding, purulent drainage or septal hematoma. Throat without erythema, tonsillar hypertrophy or exudate. Uvula midline. Airway patent. NECK: Trachea midline. No JVD or lymphadenopathy. Supple, nontender, no meningeal signs. CARDIOVASCULAR: Regular rate and rhythm without murmurs, gallops, or rubs. RESPIRATORY: Clear to auscultation. Breath sounds equal bilaterally. No wheezes, rales, or rhonchi. GASTROINTESTINAL: Abdomen soft, mild generalized tenderness, nondistended. Decreased bowel sounds No hepato-splenomegaly, or palpable masses. No guarding. RECTAL: Small, reducible internal hemorrhoid. No bleeding. Firm stool high up in the rectal vault, unable to manually disimpact EXTREMITIES: Full but painful range of motion of the right shoulder BACK: Nontender without deformity or crepitance. No flank tenderness. NEURO: AOx3. SKIN: No rash or erythema. Initial Vital Signs Initial Vital Signs: Vital Signs Temperature 97.8 F 04/28/18 10:55 Pulse Rate 97 H 04/28/18 10:55 Respiratory Rate 18 04/28/18 10:55 Blood Pressure 112/75 04/28/18 10:55 Pulse Oximetry 98 04/28/18 10:55 Course Orders Ordered: ED Orders 04/28/18 10:53 XR acute abdomen series Stat Discontinued Medications Mineral Oil (Mineral Oil Enema) 1 each DE NOW ONE Stop: 04/28/18 12:25 Last Admin: 04/28/18 12:36 Dose: 1 each Reevaluation(s) Reevaluation #1: Patient elects to have enema, had a large bowel movement and a near complete resolution of symptoms Vital Signs - 8 hr 04/28/18 10:55 04/28/18 13:56 Temperature 97.8 F Pulse Rate 97 H 79 Respiratory Rate 18 16 Blood Pressure 112/75 Blood Pressure [Left Arm] 126/76 Pulse Oximetry 98 93 Discharge Plan Departure Patient Disposition: Home Clinical Impression: Constipation Discharge Date/Time: 04/28/18 14:17 Interventions: ED Discharge Assessment Last Done: 04/28/18 14:17 Instructions: Constipation Activity Restrictions/Additional Instructions: *You have been diagnosed with [ abdominal pain due to constipation ] *What to do: *Take over the counter medications as directed: 1. Magnesium Citrate - brings water into your bowel 2. Colace - softens your stool 3. Dulcolax - stiumlates your bowels *Follow up with your primary care provider in 2-3 days, call for appointment *Return to ER if you should have any new, worsening or concerning symptoms *Drink plenty of water and eat foods high in fiber Prescriptions: No Action multivitamin [Multiple Vitamins] 1 EACH tablet 1 tab PO QDAY Qty: 0 RF: 0 lisinopril 40 MG tablet 40 mg PO BEDTIME Qty: 0 RF: 0 [TUMERIC] 500 mg PO QDAY Qty: 0 RF: 0 aspirin 325 mg Tablet 81 mg PO BEDTIME RF: 0 pravastatin 40 mg Tablet 40 mg PO BEDTIME RF: 0 hydrocodone-acetaminophen [[place]] 5-325 mg tablet 2 tab PO Q4-6H PRN (Reason: pain) Qty: 40 RF: 0 Referrals: [Primary Care Provider] -
--- NOTE | 2018-04-28 16:46 | ED_ITS ---
HPI - Abdominal Pain General Chief Complaint: Abdominal Pain Stated Complaint: YVETTE ARROYO ITS BEEN 5 DAYS Time Seen by Provider: 04/28/18 11:04 Source: patient and family Mode of arrival: ambulatory Limitations: no limitations History of Present Illness HPI narrative: 73-year-old male, nonsmoker, presents with his for evaluation of decreased bowel movements for about the past week. He has no stranger to constipation but it does not usually last this long. He recently had a total right shoulder and has not had a bowel movement since the surgery. He has generalized crampy abdominal pain and denies any fever, chills nor nausea or vomiting. His pain is worse when he moves and improves with rest. He states that he has a history of hemorrhoids and was able to push 1 back in earlier today. He denies any rectal bleeding or other problems. He has been sporadically taking the pain medications given on discharge. He tried 2 doses of MiraLax over the course of the week and a few doses of Metamucil. MD complaint: abdominal pain Onset (ago): day(s) Pain Consistency: constant Location: diffuse Severity: mild Quality: cramping Radiation: none Migration to: no migration Relieving factors: nothing Exacerbating factors: movement Context: recent surgery/procedure Related Data Home Medications Medication Instructions Recorded Confirmed [TUMERIC] 500 mg PO QDAY #0 08/13/17 04/22/18 lisinopril 40 mg PO BEDTIME #0 08/13/17 04/22/18 multivitamin [Multiple Vitamins] 1 tab PO QDAY #0 08/13/17 04/22/18 aspirin 81 mg PO BEDTIME 04/01/18 04/22/18 pravastatin 40 mg PO BEDTIME 04/01/18 04/22/18 Previous Rx's Medication Instructions Recorded hydrocodone-acetaminophen [[place]] 2 tab PO Q4-6H PRN #40 tab 04/23/18 Allergies Allergy/AdvReac Type Severity Reaction Status Date / Time citric acid [CITRIC ACID] Allergy Mild CANKER Verified 04/01/18 11:03 SORES Penicillins [PENICILLINS] Allergy Unknown CHILDHOOD Verified 04/01/18 11:03 Review of Systems Review of Systems All systems reviewed & are unremarkable except as noted in HPI and below Constitutional Denies chills, Denies fever(s), Denies lethargy and Denies weakness Eyes Denies change in vision, Denies eye discharge, Denies irritation and Denies loss of vision ENT Ears, Nose, Mouth, and Throat: Denies change in voice, Denies neck pain and Denies sore throat Cardiovascular Denies chest pain, Denies irregular heart rhythm, Denies lightheadedness, Denies palpitations, Denies dyspnea, Denies dyspnea on exertion and Denies orthopnea Respiratory Denies cough, Denies dyspnea, Denies dyspnea on exertion and Denies wheezing Gastrointestinal Gastrointestinal: Reports system reviewed and no additional complaints, except as docu, Reports abdominal pain, Denies change in bowel habits, Reports cramping , Denies diarrhea, Denies nausea and Denies vomiting Genitourinary Denies hematuria, Denies flank pain, Denies urinary incontinence and Denies urinary urgency Musculoskeletal Denies neck pain Integumentary/Breasts Denies pruritus, Denies erythema, Denies rash and Denies wounds Neurologic Denies confusion, Denies loss of vision and Denies weakness Psychiatric Denies anxiety, Denies confusion, Denies depression, Denies homicidal ideation and Denies suicidal ideation Endocrine Denies palpitations Hematologic/Lymphatic Denies easy bruising Allergic/Immunologic Denies wheezing [facility] Medical History Arthritis (Acute) BPH (benign prostatic hyperplasia) (Acute) CVA (cerebral vascular accident) (Acute) Dilated pancreatic duct (Acute) Erectile dysfunction (Acute) History of colitis (Acute) Hyperlipidemia (Acute) Impaired vision (Acute) Multiple fractures of ribs of right side (Acute) TIA (transient ischemic attack) (Acute) Surgical History History of colonoscopy (Acute) History of tonsillectomy (Acute) 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 HEAD: Atraumatic. Normocephalic. No temporal or scalp tenderness. EYES: Pupils equal round and reactive. Extraocular motions intact. No scleral icterus. No injection or drainage. ENT: Nose without bleeding, purulent drainage or septal hematoma. Throat without erythema, tonsillar hypertrophy or exudate. Uvula midline. Airway patent. NECK: Trachea midline. No JVD or lymphadenopathy. Supple, nontender, no meningeal signs. CARDIOVASCULAR: Regular rate and rhythm without murmurs, gallops, or rubs. RESPIRATORY: Clear to auscultation. Breath sounds equal bilaterally. No wheezes , rales, or rhonchi. GASTROINTESTINAL: Abdomen soft, mild generalized tenderness, nondistended. Decreased bowel sounds No hepato-splenomegaly, or palpable masses. No guarding. RECTAL: Small, reducible internal hemorrhoid. No bleeding. Firm stool high up in the rectal vault, unable to manually disimpact EXTREMITIES: Full but painful range of motion of the right shoulder BACK: Nontender without deformity or crepitance. No flank tenderness. NEURO: AOx3. SKIN: No rash or erythema. Initial Vital Signs Initial Vital Signs: Vital Signs Temperature 97.8 F 04/28/18 10:55 Pulse Rate 97 H 04/28/18 10:55 Respiratory Rate 18 04/28/18 10:55 Blood Pressure 112/75 04/28/18 10:55 Pulse Oximetry 98 04/28/18 10:55 Course Orders Ordered: ED Orders 04/28/18 10:53 XR acute abdomen series Stat Discontinued Medications Mineral Oil (Mineral Oil Enema) 1 each [place] NOW ONE Stop: 04/28/18 12:25 Last Admin: 04/28/18 12:36 Dose: 1 each Reevaluation(s) Reevaluation #1: Patient elects to have enema, had a large bowel movement and a near complete resolution of symptoms Vital Signs - 8 hr 04/28/18 10:55 04/28/18 13:56 Temperature 97.8 F Pulse Rate 97 H 79 Respiratory Rate 18 16 Blood Pressure 112/75 Blood Pressure [Left Arm] 126/76 Pulse Oximetry 98 93 Discharge Plan Departure Patient Disposition: Home Clinical Impression: Constipation Discharge Date/Time: 04/28/18 14:17 Interventions: ED Discharge Assessment Last Done: 04/28/18 14:17 Instructions: Constipation Activity Restrictions/Additional Instructions: *You have been diagnosed with [ abdominal pain due to constipation ] *What to do: *Take over the counter medications as directed: 1. Magnesium Citrate - brings water into your bowel 2. Colace - softens your stool 3. Dulcolax - stiumlates your bowels *Follow up with your primary care provider in 2-3 days, call for appointment *Return to ER if you should have any new, worsening or concerning symptoms *Drink plenty of water and eat foods high in fiber Prescriptions: No Action multivitamin [Multiple Vitamins] 1 EACH tablet 1 tab PO QDAY Qty: 0 RF: 0 lisinopril 40 MG tablet 40 mg PO BEDTIME Qty: 0 RF: 0 [TUMERIC] 500 mg PO QDAY Qty: 0 RF: 0 aspirin 325 mg Tablet 81 mg PO BEDTIME RF: 0 pravastatin 40 mg Tablet 40 mg PO BEDTIME RF: 0 hydrocodone-acetaminophen [[place]] 5-325 mg tablet 2 tab PO Q4-6H PRN (Reason: pain) Qty: 40 RF: 0 Referrals: [Primary Care Provider] -
== END 2018-04-28 14:17 | disposition home or self-care (01) ==
PROVIDERS: Emergency Provider Emergency Medicine
DX: K59.00 Constipation, unspecified (principal)
CPT/HCPCS: 74022; 99283

== ENCOUNTER → 2018-05-22 09:57 | Outpatient (CLI) | payer MEDICARE, OTHER, SELFPAY ==
[2018-04-22 16:04] VITALS: BMI 29.8
[2018-05-22 10:30] LABS: Add Manual Diff / Slide Review NO; Basophils Percent Auto 0.4 % (0-2); Eosinophils Percent Auto 3.9 % (2-4); Hematocrit 40.9 % (41-53); Lymphocytes Percent Auto 30.4 % (25-40); Mean Corpuscular HGB Conc 34.3 % (30-36); Mean Corpuscular Hemoglobin 32.1 PG (26-34); Mean Corpuscular Volume 93.7 fL (80-100); Monocytes Percent Auto 12.9 % (3-14); Neutrophils Absolute Auto 2600 /uL (3000-5900); Neutrophils Percent Auto 52.4 % (50-75); Platelet Count 190 X10^3/uL (150-400); Red Blood Cell Count 4.37 X10^6/uL (4.5-5.9); Red Cell Distribution Width 13.4 % (11.6-14.8); White Blood Cell Count 4.9 X10^3/uL (4.5-11.0)
[2018-05-22 10:42] LABS: Alanine Aminotransferase 27 IU/L (21-72); Albumin 4.4 g/dL (3.5-5.0); Albumin Globulin Ratio 1.5 (1.0-2.8); Alkaline Phosphatase 73 U/L (38-126); Aspartate Aminotransferase 25 IU/L (17-59); BUN Creatinine Ratio 24.4 (6-22); Bilirubin Total 0.5 mg/dL (0.2-1.3); Blood Urea Nitrogen 22 mg/dL (9-20); Calcium 9.7 mg/dL (8.4-10.2); Carbon Dioxide 25 mmol/L (22-32); Chloride 105 mmol/L (98-107); Cholesterol 230 mg/dL (140-199); Estimated Glomerular Filt Rate > 60.0 mL/min (>60); Globulin 2.9 g/dL (1.7-4.1); Glucose 95 mg/dL (80-110); HDL Cholesterol 38 mg/dL (40-60); HEMOLYSIS < 15 (0-50); LDL Cholesterol Calculated 173 mg/dL (<100); Potassium 4.6 mmol/L (3.4-5.1); Sodium 144 mmol/L (137-145); Total Protein 7.3 g/dL (6.3-8.2); Triglycerides 96 mg/dL (35-150)
[2018-05-22 11:09] LABS: Prostate Specific Antigen Scrn 8.67 ng/mL (0.1-4.0)
== END ==
PROVIDERS: PCP Internal Medicine; Visit Provider Internal Medicine
DX: I10 Essential (primary) hypertension (principal); E78.00 Pure hypercholesterolemia, unspecified; Z12.5 Encounter for screening for malignant neoplasm of prostate
CPT/HCPCS: 36415; 80053; 80061; 85025; G0103

== ENCOUNTER → 2018-06-18 09:31 | Outpatient (CLI) | payer MEDICARE, OTHER, SELFPAY ==
[2018-04-22 16:04] VITALS: BMI 29.8
[2018-06-18 10:23] LABS: Add Manual Diff / Slide Review NO; Basophils Percent Auto 0.2 % (0-2); Eosinophils Percent Auto 2.9 % (2-4); Hemoglobin 13.2 g/dL (13.5-17.5); Lymphocytes Percent Auto 25.4 % (25-40); Mean Corpuscular HGB Conc 33.8 % (30-36); Mean Corpuscular Hemoglobin 31.8 PG (26-34); Mean Corpuscular Volume 94.1 fL (80-100); Monocytes Percent Auto 12.8 % (3-14); Neutrophils Absolute Auto 3200 /uL (3000-5900); Neutrophils Percent Auto 58.7 % (50-75); Platelet Count 236 X10^3/uL (150-400); Red Blood Cell Count 4.15 X10^6/uL (4.5-5.9); Red Cell Distribution Width 13.4 % (11.6-14.8); White Blood Cell Count 5.4 X10^3/uL (4.5-11.0)
[2018-06-18 10:51] LABS: Erythrocyte Sedimentation Rate 38 MM/HR (0-15)
[2018-06-18 11:27] LABS: Cholesterol 145 mg/dL (140-199); HDL Cholesterol 36 mg/dL (40-60); LDL Cholesterol Calculated 95 mg/dL (<100); Triglycerides 71 mg/dL (35-150)
== END ==
PROVIDERS: PCP Internal Medicine; Visit Provider Internal Medicine
DX: M77.11 Lateral epicondylitis, right elbow (principal); E78.00 Pure hypercholesterolemia, unspecified
CPT/HCPCS: 36415; 80061; 85025; 85651